=== PATIENT | male | born 1995 ===

== ENCOUNTER 2018-11-30 07:08 | Outpatient (CLI) | payer OTHER ==
[~2018-11-30] VITALS: Ht 182.9 cm; Wt 77.1 kg
[2018-11-30] MEDS ORDERED: AYR SALINE NA14.1 GM NASAL (08:59)
== END 2018-11-30 12:50 | disposition home or self-care (01) ==
LOC: OFIC 805 07:08
DX: H69.93 Unspecified Eustachian tube disorder, bilateral (principal); R04.0 Epistaxis; D18.01 Hemangioma of skin and subcutaneous tissue